=== PATIENT | female | born 1985 | race Two or more races ===

== ENCOUNTER 2019-01-21 23:56 | Emergency (ER) | payer OTHER ==
[~2019-01-21] VITALS: Ht 160 cm; Wt 61.2 kg
[2019-01-22] MEDS ORDERED: KETO10TA2 PO (01:30)
== END 2019-01-22 03:54 | disposition home or self-care (01) ==
LOC: ER 23:56
DX: N64.4 Mastodynia (principal)

== ENCOUNTER 2020-07-02 23:10 | Emergency (ER) | payer OTHER ==
[~2020-07-02] VITALS: Ht 160 cm; Wt 65.8 kg
[~2020-07-02 23:10] MED LIST: KETO10TA2 PO
[2020-07-03] MEDS ORDERED: NAPROXEN375 MG PO (02:59)
[2020-07-03] MEDS ORDERED: ADVAIR HFA 115/12 GM IH (02:59)
[2020-07-03] MEDS ORDERED: SKELAXIN800 MG PO (02:59)
== END 2020-07-03 03:37 | disposition home or self-care (01) ==
LOC: ER 23:10
DX: R07.89 Other chest pain (principal); M94.0 Chondrocostal junction syndrome [Tietze]; Z20.822 Contact with and (suspected) exposure to COVID-19